=== PATIENT | female | born 1955 | race Caucasian/White ===

== ENCOUNTER 2017-01-05 08:56 | Emergency (ER) | payer BC ==
[2017-01-05] MEDS ORDERED: Aluminum Hydroxide/Magnesium Hydroxide/Simethicone Susp 30 ML Cup ONE (09:21)
[2017-01-05] MEDS ORDERED: GI Cocktail Oral Solution 30 ML PO ONE (09:27)
--- NOTE | 2017-01-05 09:40 | EDM.PDOC ---
ED HPI GENERAL MEDICAL PROBLEM - General Chief Complaint: General Stated Complaint: heart burn Time Seen by Provider: 01/05/17 09:15 Source of Information: Reports: Patient, Family, RN History Limitations: Reports: No Limitations - History of Present Illness INITIAL COMMENTS - FREE TEXT/NARRATIVE: 61 yr female presents with upper GI, burning sensation from mid chest to throat. States working all night, had some pizza and coffee, has taken tums a couple times, took am pills and went to lie down and pain increased. States hx of GI distress and irritable bowel. States she has had a colonoscopy, but not had an upper GI study. States hemorrhoid and blood to stool. Onset: Today Onset Date: 01/05/17 Duration: Getting Worse Location: Reports: Neck, Chest, Abdomen Quality: Reports: Burning Severity: Moderate Improves with: Reports: Medication Worsens with: Reports: Rest Associated Symptoms: Reports: Nausea/Vomiting, Other (diarrhea) Treatments STUDENT LIFE ADVISOR: Reports: Aspirin, Other Medication(s), Other (see below) Other Treatments STUDENT LIFE ADVISOR: TUMs, [place] Mid-Sternal Throat Pain Score (Numeric/FACES): 4 - Related Data Allergies Allergy/AdvReac Type Severity Reaction Status Date / Time Sulfa (Sulfonamide Allergy Hives Verified 01/05/17 09:15 Antibiotics) Home Meds: Home Meds Aspirin 81 mg PO DAILY 01/05/17 [History] Metoprolol Succinate 100 mg DAILY 01/05/17 [History] Omeprazole 20 mg PO BEDTIME #30 cap.cr 01/05/17 [Rx] Pravastatin [Pravachol] 40 mg PO BEDTIME 01/05/17 [History] Sertraline [Zoloft] 100 mg PO DAILY 01/05/17 [History] Valsartan [Diovan] 80 mg PO DAILY 01/05/17 [History] ED ROS GENERAL - Review of Systems Review Of Systems: See Below Constitutional: Reports: No Symptoms HEENT: Reports: No Symptoms Respiratory: Reports: No Symptoms Cardiovascular: Reports: Chest Pain. Denies: Edema Endocrine: Reports: No Symptoms GI/Abdominal: Reports: Abdominal Pain, Nausea, Vomiting Musculoskeletal: Reports: Joint Pain Skin: Reports: No Symptoms Neurological: Reports: No Symptoms Psychiatric: Reports: No Symptoms ED EXAM, GI/ABD - Physical Exam Exam: See Below Exam Limited By: No Limitations General Appearance: Alert, No Apparent Distress Respiratory/Chest: No Respiratory Distress, Lungs Clear, Normal Breath Sounds Cardiovascular: Normal Peripheral Pulses, Regular Rate, Rhythm GI/Abdominal Exam: Normal Bowel Sounds, Soft, No Distention, Other (mid abdomen pain with palpation) (Female) Exam: Deferred Rectal (Female) Exam: Deferred Back Exam: Normal Inspection Extremities: Normal Inspection, No Pedal Edema Neurological: Alert, Oriented Psychiatric: Normal Affect Skin Exam: Warm, Dry, Normal Color Course - Vital Signs Last Recorded V/S: Last Vital Signs Temp 97.1 F 01/05/17 09:46 Pulse 59 L 01/05/17 09:46 Resp 20 01/05/17 09:46 BP 146/74 H 01/05/17 09:46 Pulse Ox 95 01/05/17 09:46 - Orders/Labs/Meds Orders: Active Orders 24 hr Category Date Time Status EKG Documentation Completion [RC] ASDIRECTED Care 01/05/17 09:25 Active Labs: Laboratory Tests 01/05/17 01/05/17 Range/Units 09:41 09:41 WBC 7.1 (4.0-11.0) K/uL RBC 4.59 (3.80-5.80) M/uL Hgb 13.9 (11.5-16.5) g/dL Hct 40.3 (37.0-47.0) % MCV 88 (76-96) fL MCH 30.3 (27.0-32.0) pg MCHC 34.5 (31.0-35.0) g/dL RDW 12.8 (11.0-16.0) % Plt Count 172 (150-500) K/uL MPV 9.4 (6.0-10.0) fL Neut % (Auto) 61.6 (45.0-70.0) % Lymph % (Auto) 29.4 (20.0-40.0) % [place] % (Auto) 6.5 (3.0-10.0) % Eos % (Auto) 1.7 (1.0-5.0) % Baso % (Auto) 0.8 H (0.0-0.5) % Neut # (Auto) 4.38 (2.00-7.50) K/uL Lymph # (Auto) 2.09 (1.50-4.00) K/uL [place] # (Auto) 0.46 (0.20-0.80) K/uL Eos # (Auto) 0.12 (0.04-0.40) K/uL Baso # (Auto) 0.06 (0.02-0.10) K/uL Sodium 140 (136-145) mmol/L Potassium 3.9 (3.5-5.1) mmol/L Chloride 102 (98-107) mmol/L Carbon Dioxide 28.8 (21.0-32.0) mmol/L Anion Gap 13.1 (5.0-15.0) mmol/L BUN 21 (8-26) mg/dL Creatinine 0.77 (0.55-1.02) mg/dL Est Cr Clr Drug Dosing 65.07 mL/min Estimated GFR (MDRD) > 60 (>60) MLS/MIN BUN/Creatinine Ratio 27.3 H (6-25) Glucose 120 H (74-100) mg/dL Calcium 9.6 (8.5-10.1) mg/dL Troponin I < 0.017 (0.000-0.060) ng/mL Meds: Medications Discontinued Medications Generic Name Dose Route Start Last Admin Trade Name Freq PRN Reason Stop Dose Admin Al Hydroxide/Mg Hydroxide Confirm 01/05/17 09:21 01/05/17 09:27 Mag-Al Plus Administered 01/05/17 09:22 Not Given Dose 30 ml .ROUTE .STK-MED ONE Al Hydroxide/Mg Hydroxide 30 ml 01/05/17 09:27 01/05/17 09:22 Gi Cocktail PO 01/05/17 09:28 30 ml ONETIME ONE Administration - Re-Assessments/Exams Free Text/Narrative Re-Assessment/Exam: 01/05/17 10:29 Troponins negative, reviewed labs, EKG NSR: Recommend Prilosec 20 mg PO daily, Rx sent to [facility]. Recommend Mylanta qid prn. Return to PCP for follow-up in next week. Departure - Departure Time of Disposition: 10:30 Disposition: Home, Self-Care 01 Condition: Good Clinical Impression: GERD (gastroesophageal reflux disease) - Discharge Information Prescriptions: Omeprazole 20 mg PO BEDTIME #30 cap.cr Instructions: Indigestion, [id number] Referrals: PCP,None [Primary Care Provider] - Forms: ED Department Discharge - My Orders Last 24 Hours: My Active Orders 01/05/17 09:25 EKG Documentation Completion [RC] ASDIRECTED - Assessment/Plan Last 24 Hours: My Active Orders 01/05/17 09:25 EKG Documentation Completion [RC] ASDIRECTED
== END 2017-01-05 10:26 | disposition home or self-care (01) ==
LOC: LB.ED 08:56
DX: K21.9 Gastro-esophageal reflux disease without esophagitis (principal); Z79.82 Long term (current) use of aspirin; Z79.899 Other long term (current) drug therapy; Z88.2 Allergy status to sulfonamides
CPT/HCPCS: 36415; 80048; 84484; 85025; 93005; 99283; A9270

== ENCOUNTER 2020-06-05 12:05 | Emergency (ER) | payer BC ==
--- NOTE | 2020-06-05 12:12 | EDM.PDOC ---
ED HPI GENERAL MEDICAL PROBLEM - General Stated Complaint: SOB Time Seen by Provider: 06/05/20 12:30 Source of Information: Reports: Patient, Provider History Limitations: Reports: No Limitations - History of Present Illness INITIAL COMMENTS - FREE TEXT/NARRATIVE: 64 yrs old with a PMHx of HTN, Dyslipidemia and smoking who presented to the ER due to worsening SOB over the last 7-10 days. No fever or chills. Cough is no productive but sometimes yellow phlegm. No CP. Beside working at [employer] for 20 yrs in the past, she also smoked cigarettes for 30+ yrs. around 1 ppd, but recently decreased down 1/2 ppd. Reports that here sister has COPD and she let her use her albuterol inhaler at home which helped. She is here for a checkup. Onset: Gradual - Related Data Allergies Allergy/AdvReac Type Severity Reaction Status Date / Time Sulfa (Sulfonamide Allergy Hives Verified 06/05/20 12:52 Antibiotics) Home Meds: Home Meds Aspirin 81 mg PO DAILY 01/05/17 [History] Metoprolol Succinate 100 mg DAILY 01/05/17 [History] Pravastatin [Pravachol] 40 mg PO BEDTIME 01/05/17 [History] Sertraline [Zoloft] 100 mg PO DAILY 01/05/17 [History] Irbesartan/Hydrochlorothiazide [Irbesartan-Hctz 300-12.5 mg Tb] 1 each PO DAILY 06/05/20 [History] Past Medical History Cardiovascular History: Reports: Hypertension Respiratory History: Reports: SOB Gastrointestinal History: Reports: GERD Neurological History: Reports: None Social & Family History - Tobacco Use Tobacco Use Status *Q: Current Every Day Tobacco User Tobacco Use Within Last Twelve Months: Cigarettes Years of Tobacco use: 30 Packs/Tins Daily: 0.5 ED ROS GENERAL - Review of Systems Review Of Systems: See Below Constitutional: Reports: No Symptoms HEENT: Reports: No Symptoms Respiratory: Reports: Shortness of Breath Cardiovascular: Reports: Dyspnea on Exertion Endocrine: Reports: No Symptoms GI/Abdominal: Reports: No Symptoms : Reports: No Symptoms Musculoskeletal: Reports: No Symptoms Skin: Reports: No Symptoms Neurological: Reports: No Symptoms Psychiatric: Reports: No Symptoms ED EXAM, GENERAL - Physical Exam Exam: See Below Exam Limited By: No Limitations General Appearance: Alert, WD/WN, No Apparent Distress Eye Exam: Bilateral Eye: EOMI, PERRL Throat/Mouth: Normal Inspection Head: Atraumatic, Normocephalic Respiratory/Chest: No Respiratory Distress, No Accessory Muscle Use, Wheezing Cardiovascular: Normal Peripheral Pulses, Regular Rate, Rhythm GI/Abdominal: Normal Bowel Sounds, Soft, Non-Tender Extremities: Normal Inspection Neurological: Alert, Oriented, Normal Cognition, No Motor/Sensory Deficits #1 Interpretation EKG Date: 06/05/20 Rhythm: NSR [place]: Normal P-Wave: Present QRS: Normal ST-T: Normal QT: Normal Comparison: NA - No Prior EKG Course - Vital Signs Last Recorded V/S: Last Vital Signs Temp 36.6 C 06/05/20 12:54 Pulse 69 06/05/20 13:52 Resp 20 06/05/20 12:54 BP 177/83 H 06/05/20 14:19 Pulse Ox 98 06/05/20 12:54 - Orders/Labs/Meds Orders: Active Orders 24 hr Category Date Time Status EKG Documentation Completion [RC] ASDIRECTED Care 06/05/20 13:36 Active RT Aerosol Therapy [RC] ASDIRECTED Care 06/05/20 13:00 Active Chest 1V Frontal [CR] Stat Exams 06/05/20 12:59 Taken Labs: Laboratory Tests 06/05/20 06/05/20 06/05/20 Range/Units 12:23 13:17 13:17 WBC 7.6 (4.0-11.0) K/uL RBC 4.93 (3.80-5.80) M/uL Hgb 15.0 (11.5-16.5) g/dL Hct 43.0 (37.0-47.0) % MCV 87 (76-96) fL MCH 30.4 (27.0-32.0) pg MCHC 34.9 (31.0-35.0) g/dL RDW 12.8 (11.0-16.0) % Plt Count 192 (150-500) K/uL MPV 9.0 (6.0-10.0) fL Neut % (Auto) 50.6 (45.0-70.0) % Lymph % (Auto) 32.5 (20.0-40.0) % [place] % (Auto) 6.7 (3.0-10.0) % Eos % (Auto) 8.2 H (1.0-5.0) % Baso % (Auto) 2.0 H (0.0-0.5) % Neut # (Auto) 3.84 (2.00-7.50) K/uL Lymph # (Auto) 2.46 (1.50-4.00) K/uL [place] # (Auto) 0.51 (0.20-0.80) K/uL Eos # (Auto) 0.62 H (0.04-0.40) K/uL Baso # (Auto) 0.15 H (0.02-0.10) K/uL Sodium 140 (136-145) mmol/L Potassium 4.1 (3.5-5.1) mmol/L Chloride 103 (98-107) mmol/L Carbon Dioxide 27.0 (21.0-32.0) mmol/L Anion Gap 14.1 (5.0-15.0) mmol/L BUN 12 D (8-26) mg/dL Creatinine 0.79 (0.55-1.02) mg/dL Est Cr Clr Drug Dosing 61.08 mL/min Estimated GFR (MDRD) > 60 (>60) MLS/MIN BUN/Creatinine Ratio 15.2 (6-25) Glucose 82 D (74-100) mg/dL Calcium 9.0 (8.5-10.1) mg/dL Troponin I (0.000-0.060) ng/mL B-Natriuretic Peptide 250 H (0-125) pg/mL SARS CoV-2 RNA Rapid KHURRAM Negative 06/05/20 Range/Units 13:35 WBC (4.0-11.0) K/uL RBC (3.80-5.80) M/uL Hgb (11.5-16.5) g/dL Hct (37.0-47.0) % MCV (76-96) fL MCH (27.0-32.0) pg MCHC (31.0-35.0) g/dL RDW (11.0-16.0) % Plt Count (150-500) K/uL MPV (6.0-10.0) fL Neut % (Auto) (45.0-70.0) % Lymph % (Auto) (20.0-40.0) % [place] % (Auto) (3.0-10.0) % Eos % (Auto) (1.0-5.0) % Baso % (Auto) (0.0-0.5) % Neut # (Auto) (2.00-7.50) K/uL Lymph # (Auto) (1.50-4.00) K/uL [place] # (Auto) (0.20-0.80) K/uL Eos # (Auto) (0.04-0.40) K/uL Baso # (Auto) (0.02-0.10) K/uL Sodium (136-145) mmol/L Potassium (3.5-5.1) mmol/L Chloride (98-107) mmol/L Carbon Dioxide (21.0-32.0) mmol/L Anion Gap (5.0-15.0) mmol/L BUN (8-26) mg/dL Creatinine (0.55-1.02) mg/dL Est Cr Clr Drug Dosing mL/min Estimated GFR (MDRD) (>60) MLS/MIN BUN/Creatinine Ratio (6-25) Glucose (74-100) mg/dL Calcium (8.5-10.1) mg/dL Troponin I < 0.017 (0.000-0.060) ng/mL B-Natriuretic Peptide (0-125) pg/mL SARS CoV-2 RNA Rapid KHURRAM Meds: Medications Discontinued Medications Generic Name Dose Route Start Last Admin Trade Name Freq PRN Reason Stop Dose Admin Albuterol/Ipratropium 3 ml 06/05/20 12:59 06/05/20 13:00 Albuterol/Ipratropium 3.0-0.5 Mg/3 Ml Neb Soln NEB 06/05/20 13:00 3 ml NOW STA Administration Labetalol HCl 10 mg 06/05/20 13:39 06/05/20 14:09 Labetalol 100 Mg/20 Ml Mdv IVPUSH 06/05/20 13:40 Not Given ONETIME ONE Protocol Methylprednisolone Sodium Succinate 40 mg 06/05/20 14:00 06/05/20 14:13 Methylprednisolone Sodium Succinate 40 Mg/1 Ml Sdv IVPUSH 06/05/20 14:01 40 mg ONETIME ONE Administration Methylprednisolone Sodium Succinate Confirm 06/05/20 14:20 06/05/20 14:13 Methylprednisolone Sodium Succinate 40 Mg/1 Ml Sdv Administered 06/05/20 14:21 Not Given Dose 40 mg .ROUTE .STK-MED ONE - Re-Assessments/Exams Free Text/Narrative Re-Assessment/Exam: upon arrival to the ER, patient was connected to a monitor Vitals showed BP 205/85, RR 21, HR 75, Temp 97.7 CXR - no e/o pneumonia or infiltrates Covid test negative labs - no leukocytosis DuoNeb was given - patient reports significant improvement. 06/05/20 14:00 BP has improved without intervention, down to 175/80. Patient reports that this is how her BP usually runs around for the last several months. No PCP that she follow up with regularly. Departure - Departure Time of Disposition: 14:34 Disposition: Home, Self-Care 01 Condition: Good Clinical Impression: Smoking greater than 20 pack years, COPD suggested by initial evaluation Hypertension Qualifiers: Hypertension type: essential hypertension Qualified Code(s): I10 - Essential (primary) hypertension - Discharge Information *PRESCRIPTION DRUG MONITORING PROGRAM REVIEWED*: Not Applicable *COPY OF PRESCRIPTION DRUG MONITORING REPORT IN PATIENT GEGE: Not Applicable Sepsis Event Note (ED) - Focused Exam Vital Signs: Vital Signs Temp Pulse Resp BP Pulse Ox 06/05/20 14:19 177/83 H 06/05/20 13:52 69 173/87 H 06/05/20 12:54 36.6 C 70 20 210/100 H 98 - Problem List & Annotations (1) COPD suggested by initial evaluation SNOMED Code(s): 016189373 Code(s): J44.9 - CHRONIC OBSTRUCTIVE PULMONARY DISEASE, UNSPECIFIED Status: Acute Priority: Medium Current Visit: Yes Annotation/Comment:: - will start on ventulin inhaler - smoking cessation - nicotine patch - medrol dose elena (2) Hypertension SNOMED Code(s): 28093944 Code(s): I10 - ESSENTIAL (PRIMARY) HYPERTENSION Status: Acute Priority: Medium Current Visit: Yes Annotation/Comment:: resume home meds. check your BP twice daily. Qualifiers: Hypertension type: essential hypertension Qualified Code(s): I10 - Essential (primary) hypertension (3) Smoking greater than 20 pack years SNOMED Code(s): 86076297 Code(s): F17.210 - NICOTINE DEPENDENCE, CIGARETTES, UNCOMPLICATED Status: Acute Priority: Medium Current Visit: Yes Annotation/Comment:: nicotine patch prescribed - Problem List Review Problem List Initiated/Reviewed/Updated: Yes - My Orders Last 24 Hours: My Active Orders 06/05/20 12:59 Chest 1V Frontal [CR] Stat 06/05/20 13:00 RT Aerosol Therapy [RC] ASDIRECTED 06/05/20 13:36 EKG Documentation Completion [RC] ASDIRECTED - Assessment/Plan Last 24 Hours: My Active Orders 06/05/20 12:59 Chest 1V Frontal [CR] Stat 06/05/20 13:00 RT Aerosol Therapy [RC] ASDIRECTED 06/05/20 13:36 EKG Documentation Completion [RC] ASDIRECTED Plan: 1- for COPD: recommend - smoking cessation - use albuterol inh as prescribed - start medrol dose pack 2- for HTN: - resume home meds - check BP twice daily 3- smoking: recommend cessation. Nicotine patch prescribed
[2020-06-05] MEDS ORDERED: Albuterol/Ipratropium 3.0-0.5 MG/3 ML Neb Soln NEB STA (12:59)
[2020-06-05] MEDS ORDERED: Labetalol 100 MG/20 ML MDV IVPUSH ONE (13:39)
[2020-06-05] MEDS ORDERED: methylPREDNISolone Sodium Succinate 40 MG/1 ML SDV IVPUSH ONE (14:00)
[2020-06-05] MEDS ORDERED: methylPREDNISolone Sodium Succinate 40 MG/1 ML SDV ONE (14:20)
--- NOTE | 2020-06-08 09:50 | CR ---
DATE OF SERVICE: 06/05/20 CLINICAL DATA: sob AP CHEST: No priors. The heart size is normal. There is calcification of the aortic arch. The lungs are clear. No pneumothorax. No pleural effusions. No evidence of acute intrathoracic disease. [id number] MTDD
== END 2020-06-05 14:55 | disposition home or self-care (01) ==
LOC: LB.ED 12:05
DX: J44.9 Chronic obstructive pulmonary disease, unspecified (principal); I10 Essential (primary) hypertension; F17.210 Nicotine dependence, cigarettes, uncomplicated; E78.5 Hyperlipidemia, unspecified; Z88.2 Allergy status to sulfonamides; Z79.82 Long term (current) use of aspirin; Z79.899 Other long term (current) drug therapy; Z20.822 Contact with and (suspected) exposure to COVID-19
CPT/HCPCS: 36415; 71045; 80048; 83880; 84484; 85025; 93005; 96374; 99283; 99285-25; J2920; J3490; J7620-GY; U0002

== ENCOUNTER 2020-07-05 14:09 | Emergency (ER) | payer BC ==
[2020-07-05 14:35] VITALS: PULSE 90
[2020-07-05] MEDS ORDERED: Budesonide 0.5 MG/2 ML Neb Susp NEB ONE (14:36)
[2020-07-05 14:42] VITALS: BP 146/71
--- NOTE | 2020-07-05 14:42 | EDM.PDOC ---
ED HPI GENERAL MEDICAL PROBLEM - General Chief Complaint: General Stated Complaint: LEFT ARM PAIN Time Seen by Provider: 07/05/20 14:30 Source of Information: Reports: Patient History Limitations: Reports: No Limitations - History of Present Illness INITIAL COMMENTS - FREE TEXT/NARRATIVE: presented to the ER due to cough for several week. Also reports a bruise to the left axillary area and pain. h/o COPD, smoking for 30 yrs and working at a mill for 15 yrs. Smokes cigarettes everyday, thou has been cutting down to 4 cigg/day. No fever or chills. No CP. Has been using her Ventolin inhaler - which helps with her SOB and cough - but doesn't last more than 2 hrs. Onset: Gradual Duration: Week(s): (4) Location: Reports: Chest Improves with: Reports: None Worsens with: Reports: None Associated Symptoms: Reports: No Other Symptoms - Related Data Allergies Allergy/AdvReac Type Severity Reaction Status Date / Time Sulfa (Sulfonamide Allergy Hives Verified 07/05/20 14:27 Antibiotics) Home Meds: Home Meds Aspirin 81 mg PO DAILY 01/05/17 [History] Metoprolol Succinate 100 mg DAILY 01/05/17 [History] Pravastatin [Pravachol] 40 mg PO BEDTIME 01/05/17 [History] Sertraline [Zoloft] 100 mg PO DAILY 01/05/17 [History] Albuterol [Ventolin HFA] 1 puff .XX Q8H #1 inhaler 06/05/20 [Rx] Irbesartan/Hydrochlorothiazide [Irbesartan-Hctz 300-12.5 mg Tb] 1 each PO DAILY 06/05/20 [History] Past Medical History Cardiovascular History: Reports: High Cholesterol, Hypertension Respiratory History: Reports: COPD, SOB Gastrointestinal History: Reports: GERD Musculoskeletal History: Reports: Other (See Below) Other Musculoskeletal History: arm surgery Neurological History: Reports: None Psychiatric History: Reports: Depression - Infectious Disease History Infectious Disease History: Reports: Chicken Pox - Past Surgical History Female Surgical History: Reports: Tubal Ligation Social & Family History - Tobacco Use Years of Tobacco use: 30 Packs/Tins Daily: 0.5 - Caffeine Use Caffeine Use: Reports: Coffee - Alcohol Use Date of Last Drink: 07/03/20 - Recreational Drug Use Recreational Drug Use: No ED ROS GENERAL - Review of Systems Review Of Systems: See Below Constitutional: Reports: No Symptoms HEENT: Reports: No Symptoms Respiratory: Reports: Cough Cardiovascular: Reports: No Symptoms GI/Abdominal: Reports: No Symptoms Musculoskeletal: Reports: No Symptoms Skin: Reports: No Symptoms Neurological: Reports: No Symptoms ED EXAM, GENERAL - Physical Exam Exam: See Below Exam Limited By: No Limitations General Appearance: Alert, WD/WN, No Apparent Distress Eye Exam: Bilateral Eye: EOMI Respiratory/Chest: No Respiratory Distress, No Accessory Muscle Use, Wheezing (end exp wheezes b/l ), Other (there is a bruise in the left axillary area - under the bra area.) GI/Abdominal: Normal Bowel Sounds Extremities: Normal Inspection Neurological: Alert, Oriented Course - Vital Signs Last Recorded V/S: Last Vital Signs Temp 36.9 C 07/05/20 14:21 Pulse 90 07/05/20 14:34 Resp 20 07/05/20 14:34 BP 146/71 H 07/05/20 14:42 Pulse Ox 95 07/05/20 14:34 - Orders/Labs/Meds Orders: Active Orders 24 hr Category Date Time Status RT Aerosol Therapy [RC] ASDIRECTED Care 07/05/20 14:36 Active RT Aerosol Therapy [RC] ASDIRECTED Care 07/05/20 15:19 Ordered CXR [Chest 1V Frontal] [CR] Stat Exams 07/05/20 14:36 Ordered Labs: Laboratory Tests 07/05/20 07/05/20 07/05/20 Range/Units 14:44 14:44 14:44 WBC 6.8 (4.0-11.0) K/uL RBC 4.17 (3.80-5.80) M/uL Hgb 12.7 (11.5-16.5) g/dL Hct 36.3 L (37.0-47.0) % MCV 87 (76-96) fL MCH 30.5 (27.0-32.0) pg MCHC 35.0 (31.0-35.0) g/dL RDW 12.3 (11.0-16.0) % Plt Count 232 D (150-500) K/uL MPV 8.7 (6.0-10.0) fL PT 10.7 (9.0-11.5) sec INR 1.0 (1.0-3.5) Sodium 133 L (136-145) mmol/L Potassium 3.5 (3.5-5.1) mmol/L Chloride 98 (98-107) mmol/L Carbon Dioxide 27.5 (21.0-32.0) mmol/L Anion Gap 11.0 (5.0-15.0) mmol/L BUN 16 D (8-26) mg/dL Creatinine 0.85 (0.55-1.02) mg/dL Est Cr Clr Drug Dosing 49.29 mL/min Estimated GFR (MDRD) > 60 (>60) MLS/MIN BUN/Creatinine Ratio 18.8 (6-25) Glucose 107 H D (74-100) mg/dL Calcium 9.2 (8.5-10.1) mg/dL Troponin I < 0.017 (0.000-0.060) ng/mL Meds: Medications Discontinued Medications Generic Name Dose Route Start Last Admin Trade Name Freq PRN Reason Stop Dose Admin Albuterol/Ipratropium 3 ml 07/05/20 15:18 Albuterol/Ipratropium 3.0-0.5 Mg/3 Ml Neb Soln NEB 07/05/20 15:19 NOW STA Budesonide 0.5 mg 07/05/20 14:36 07/05/20 14:49 Budesonide 0.5 Mg/2 Ml Neb Susp NEB 07/05/20 14:37 0.5 mg ONETIME ONE Administration - Re-Assessments/Exams Free Text/Narrative Re-Assessment/Exam: CXR - no e/o pneumonia,, but mild hyperinflation. Labs - no leukocytosis, normal trop and INR Neb was given - patient reports significant improvement Departure - Departure Time of Disposition: 15:37 Disposition: Home, Self-Care 01 Condition: Good Clinical Impression: COPD suggested by initial evaluation, Cough, Smoking greater than 20 pack years - Discharge Information *PRESCRIPTION DRUG MONITORING PROGRAM REVIEWED*: Not Applicable *COPY OF PRESCRIPTION DRUG MONITORING REPORT IN PATIENT GEGE: Not Applicable Referrals: PCP,None [Primary Care Provider] - Forms: ED Department Discharge Sepsis Event Note (ED) - Evaluation Sepsis Screening Result: No Definite Risk - Focused Exam Vital Signs: Vital Signs Temp Pulse Resp BP Pulse Ox 07/05/20 14:42 146/71 H 07/05/20 14:34 90 20 95 07/05/20 14:21 36.9 C 96 95 H 167/94 H 95 - Problem List & Annotations (1) Smoking greater than 20 pack years SNOMED Code(s): 74267503 Code(s): F17.210 - NICOTINE DEPENDENCE, CIGARETTES, UNCOMPLICATED Status: Acute Priority: Medium Current Visit: Yes Annotation/Comment:: nicotine patch prescribed (2) COPD suggested by initial evaluation SNOMED Code(s): 772919140 Code(s): J44.9 - CHRONIC OBSTRUCTIVE PULMONARY DISEASE, UNSPECIFIED Status: Chronic Priority: Medium Current Visit: Yes Annotation/Comment:: - will start on ventulin inhaler - smoking cessation - nicotine patch - medrol dose elena (3) Cough SNOMED Code(s): 94500578 Code(s): R05 - COUGH Status: Acute Current Visit: Yes - Problem List Review Problem List Initiated/Reviewed/Updated: Yes - My Orders Last 24 Hours: My Active Orders 07/05/20 14:36 RT Aerosol Therapy [RC] ASDIRECTED CXR [Chest 1V Frontal] [CR] Stat 07/05/20 15:19 RT Aerosol Therapy [RC] ASDIRECTED - Assessment/Plan Last 24 Hours: My Active Orders 07/05/20 14:36 RT Aerosol Therapy [RC] ASDIRECTED CXR [Chest 1V Frontal] [CR] Stat 07/05/20 15:19 RT Aerosol Therapy [RC] ASDIRECTED Plan: - will refill Ventolin and add fluticasone inh as a maintenance therapy - recommend complete smoking cessation - follow up with the PCp in 5-6 days
[2020-07-05] MEDS ORDERED: Albuterol/Ipratropium 3.0-0.5 MG/3 ML Neb Soln NEB STA (15:18)
--- NOTE | 2020-07-06 12:33 | CR ---
DATE OF SERVICE: 07/05/2020 CLINICAL DATA: Cough. AP PORTABLE CHEST: Comparison is made to a prior exam dated 06/05/2020. The heart size is normal. There is calcification of the aortic arch. The lungs are clear. No pneumothorax. No pleural effusions. No evidence of acute intrathoracic disease. [id number] [facility]
== END 2020-07-05 16:07 | disposition home or self-care (01) ==
LOC: LB.ED 14:09
DX: J44.9 Chronic obstructive pulmonary disease, unspecified (principal); F17.210 Nicotine dependence, cigarettes, uncomplicated; E78.00 Pure hypercholesterolemia, unspecified; K21.9 Gastro-esophageal reflux disease without esophagitis; Z88.2 Allergy status to sulfonamides
CPT/HCPCS: 36415; 71045; 80048; 84484; 85027; 85610; 99284-25; J7620-GY

== ENCOUNTER 2022-06-06 20:29 | Emergency (ER) | payer BC, OTHER ==
[2022-06-06] MEDS ORDERED: Albuterol/Ipratropium 3.0-0.5 MG/3 ML Neb Soln NEB PRN (21:33)
[2022-06-06] MEDS ORDERED: Albuterol/Ipratropium 3.0-0.5 MG/3 ML Neb Soln ONE ×3 (21:59→22:26)
[2022-06-06] MEDS ORDERED: predniSONE 10 MG Tab ONE (22:00)
== END 2022-06-06 22:20 | disposition home or self-care (01) ==
LOC: LB.ED 20:29
DX: J44.1 Chronic obstructive pulmonary disease with (acute) exacerbation (principal); E78.00 Pure hypercholesterolemia, unspecified; I10 Essential (primary) hypertension; Z88.2 Allergy status to sulfonamides; Z79.82 Long term (current) use of aspirin; Z79.899 Other long term (current) drug therapy
CPT/HCPCS: 71045; 94640; 99285; J7512; J7620